=== PATIENT | female | born 1985 | race Two or more races ===

== ENCOUNTER 2022-07-26 00:09 | Emergency (ER) | payer OTHER ==
[~2022-07-26] VITALS: Ht 167.6 cm; Wt 79.4 kg
--- NOTE | 2022-07-26 01:00 | NUR ---
BIBS C/O FLU LIKE SYMPTOMS SINCE 07/16 BELIEVES IT MAY BE COVID. PT NOT COVID VACCINATED AND HAS NOT TAKEN A COVID TEST. O2 SAT 99% RA RR EVEN AND UNLABORED. ALL V/S WNL.
--- NOTE | 2022-07-26 01:10 | NUR ---
COVID TEST SENT TO LAB
--- NOTE | 2022-07-26 02:01 | NUR ---
Patient discharged to home in stable condition. Written and verbal after care instructions given. Patient verbalizes understanding of instruction.Pt ambulatory with a steady gait
[2022-07-26 02:21] VITALS: BP 135/77
== END 2022-07-26 02:01 | disposition home or self-care (01) ==
LOC: ER 00:13
DX: U07.1 COVID-19 (principal); R03.0 Elevated blood-pressure reading, without diagnosis of hypertension; Z28.310 Unvaccinated for COVID-19
CPT/HCPCS: 99283; 87426; C9803

== ENCOUNTER 2022-10-07 03:22 | Emergency (ER) | payer OTHER ==
[~2022-10-07] VITALS: Ht 167.6 cm; Wt 78.0 kg
[2022-10-07 03:27] VITALS: BP 145/77
--- NOTE | 2022-10-07 03:32 | NUR ---
COVID SWAB DONE AND SENT TO LAB
--- NOTE | 2022-10-07 04:25 | NUR ---
Patient discharged to home in stable condition. Written and verbal after care instructions given. Patient verbalizes understanding of instruction.
== END 2022-10-07 04:25 ==
LOC: ER 03:23
DX: R05.9 Cough, unspecified (principal); Z20.822 Contact with and (suspected) exposure to COVID-19; R73.03 Prediabetes
CPT/HCPCS: 99283; 87426; C9803